=== PATIENT | female | born 1965 | race Caucasian/White ===

== ENCOUNTER 2019-08-15 11:41 | Inpatient (IN) ==
[2019-08-15] MEDS ORDERED: Aspirin 81 MG TAB.CHEW PO ONE (11:45)
[2019-08-15] MEDS ORDERED: Nitroglycerin 0.4 MG TAB.SUBL SL PRN (11:45)
[2019-08-15 12:22] LABS: Basophils % 0.5 %; Eosinophils # 0.1 K/mcL (0.0-0.6); Hemoglobin 13.4 g/dL (11.5-15.4); Immature Granulocytes % 0.3 % (0-4); Lymphocytes # 1.6 K/mcL (0.6-4.6); Lymphocytes % 26.5 %; Mean Corpuscular HGB Conc 34.4 g/dL (31.6-35.5); Mean Corpuscular Hemoglobin 30.2 pg (28.0-33.3); Mean Corpuscular Volume 87.8 fL (83.0-100.0); Mean Platelet Volume 8.9 fL (9.4-12.4); Monocytes # 0.5 K/mcL (0.0-1.3); Monocytes % 8.7 %; Neutrophils # 3.8 K/mcL (1.6-8.9); Platelet Count 174 K/mcL (140-400); Red Blood Count 4.44 M/mcL (3.82-4.97); Red Cell Distribution Width 14.2 % (11.5-14.5); White Blood Count 6.1 K/mcL (4.3-11.1)
[2019-08-15 12:26] LABS: INR 3.1; Prothrombin Time 35.1 Seconds (9.4-12.1)
[2019-08-15 12:29] LABS: Activated Partial Thrombo Time 50.6 Seconds (26.0-36.0)
[2019-08-15 13:50] LABS: BUN/Creatinine Ratio 16 (6-26); Blood Urea Nitrogen 13 mg/dL (6-20); Calcium 7.6 mg/dL (8.6-10.3); Carbon Dioxide 22 mEq/L (23-29); Chloride 112 mEq/L (98-107); Glucose 76 mg/dL (70-105); Osmolality,Calculated 291 (280-300); Potassium 3.4 mEq/L (3.5-5.1); Sodium 141 mEq/L (136-145); Troponin I < 0.03 ng/mL (< 0.04); eGFR For African Americans > 60 (> 60); eGFR For Non-African Americans > 60 (> 60)
[2019-08-15] MEDS ORDERED: Isovue-370 500 ML BOTTLE IVP ONE (14:13)
[2019-08-15] MEDS ORDERED: Naloxone 0.4 MG/ML INJ IVP PRN (16:19)
[2019-08-15] MEDS ORDERED: Ondansetron 4 MG/2 ML VIAL IVP PRN (16:19)
[2019-08-15] MEDS: Ipratropium/Albuterol Neb 3 ML IH SCH ×2 (17:50→22:17)
[2019-08-15] MEDS ORDERED: *HR* Warfarin 3 MG TABLET PO ONE (18:00)
[2019-08-15] MEDS ORDERED: Warfarin perPT PO PRN (18:00)
[2019-08-15] MEDS: Nicotine 14 MG PATCH.TD24 TD SCH (18:10)
[2019-08-15] MEDS ORDERED: Morphine Sulfate 2 MG/ML SYRINGE IVP PRN (20:09)
[2019-08-15] MEDS: Budesonide/Formoterol 160/4.5 1 PUFF INH IH SCH (22:18)
[2019-08-16 01:16] LABS: Basophils % 0.6 %; Eosinophils # 0.1 K/mcL (0.0-0.6); Eosinophils % 1.9 %; Hematocrit 35.8 % (35.3-44.9); Hemoglobin 12.3 g/dL (11.5-15.4); Immature Granulocytes % 0.3 % (0-4); Lymphocytes # 1.5 K/mcL (0.6-4.6); Lymphocytes % 20.3 %; Mean Corpuscular HGB Conc 34.4 g/dL (31.6-35.5); Mean Corpuscular Hemoglobin 30.1 pg (28.0-33.3); Mean Corpuscular Volume 87.5 fL (83.0-100.0); Monocytes # 0.7 K/mcL (0.0-1.3); Monocytes % 9.6 %; Neutrophils # 4.8 K/mcL (1.6-8.9); Platelet Count 174 K/mcL (140-400); Red Blood Count 4.09 M/mcL (3.82-4.97); Red Cell Distribution Width 14.1 % (11.5-14.5); Segmented Neutrophils % 67.3 %; White Blood Count 7.2 K/mcL (4.3-11.1)
[2019-08-16 01:23] LABS: INR 3.5; Prothrombin Time 40.3 Seconds (9.4-12.1)
[2019-08-16 01:35] LABS: BUN/Creatinine Ratio 22 (6-26); Blood Urea Nitrogen 22 mg/dL (6-20); Calcium 8.5 mg/dL (8.6-10.3); Carbon Dioxide 24 mEq/L (23-29); Chloride 110 mEq/L (98-107); Cholesterol 224 mg/dL (< 200); Glucose 114 mg/dL (70-105); HDL Cholesterol 25 mg/dL (40-59); LDL Cholesterol,Calculated 158 mg/dL (0-99); Osmolality,Calculated 292 (280-300); Potassium 4.1 mEq/L (3.5-5.1); Sodium 139 mEq/L (136-145); Triglycerides 206 mg/dL (< 150); eGFR For African Americans > 60 (> 60); eGFR For Non-African Americans 57 (> 60)
[2019-08-16] MEDS: Ipratropium/Albuterol Neb 3 ML IH SCH ×4 (03:32→21:52)
[2019-08-16 10:05] LABS: Adenovirus Not Detected (Not Detect); Bordetella Pertussis Not Detected (Not Detect); Chlamydophila pneumoniae Not Detected (Not Detect); Coronavirus 229E Not Detected (Not Detect); Coronavirus HKU1 Not Detected (Not Detect); Coronavirus NL63 Not Detected (Not Detect); Coronavirus OC43 Not Detected (Not Detect); Human Metapneumovirus Not Detected (Not Detect); Human Rhinovirus/Enterovirus Not Detected (Not Detect); Influenza A Subtype 2009 H1 Not Detected (Not Detect); Influenza B Not Detected (Not Detect); Mycoplasma pneumoniae Not Detected (Not Detect); Parainfluenza Virus 1 Not Detected (Not Detect); Parainfluenza Virus 2 Not Detected (Not Detect); Parainfluenza Virus 3 Not Detected (Not Detect); Parainfluenza Virus 4 Not Detected (Not Detect); Respiratory Syncytial Virus Not Detected (Not Detect)
[2019-08-16] MEDS ORDERED: GI Cocktail 40 ML EACH PO ONE (10:25)
[2019-08-16] MEDS: Budesonide/Formoterol 160/4.5 1 PUFF INH IH SCH ×2 (10:25→21:52)
[2019-08-16] MEDS: Aspirin 81 MG TAB.CHEW PO SCH (11:08)
[2019-08-16] MEDS: Nicotine 14 MG PATCH.TD24 TD SCH (11:08)
[2019-08-16] MEDS: Fluticasone Propionate Nasal 50 MCG/SPRAY BOTTLE NS SCH ×2 (11:08→21:11)
[2019-08-16] MEDS ORDERED: *HR* Phytonadione 10 MG/ML AMPUL SQ ONE (11:56)
[2019-08-16] MEDS: *HR* Enoxaparin 60 MG/0.6 ML SYRINGE SQ SCH (16:52)
[2019-08-16] MEDS ORDERED: *HR* Warfarin 4 MG TABLET PO ONE (18:00)
[2019-08-16] MEDS ORDERED: NON-FORMULARY MEDICATION 1 EACH EACH (Oxygen 2 L) NS SCH (21:00)
[2019-08-16] MEDS: traZODone 50 MG TABLET PO SCH (21:11)
[2019-08-17 00:57] LABS: INR 2.9; Prothrombin Time 32.9 Seconds (9.4-12.1)
[2019-08-17 01:30] LABS: BUN/Creatinine Ratio 28 (6-26); Blood Urea Nitrogen 22 mg/dL (6-20); Calcium 8.6 mg/dL (8.6-10.3); Carbon Dioxide 22 mEq/L (23-29); Chloride 110 mEq/L (98-107); Glucose 128 mg/dL (70-105); Magnesium 1.9 mg/dL (1.6-2.6); Osmolality,Calculated 293 (280-300); Phosphorous 2.7 mg/dL (2.7-4.5); Potassium 3.5 mEq/L (3.5-5.1); Sodium 139 mEq/L (136-145); eGFR For African Americans > 60 (> 60); eGFR For Non-African Americans > 60 (> 60)
[2019-08-17] MEDS ORDERED: 0.9 % Sodium Chloride 250 ML ONE (02:36)
[2019-08-17] MEDS: Ipratropium/Albuterol Neb 3 ML IH SCH ×4 (04:16→22:06)
[2019-08-17] MEDS: *HR* Enoxaparin 60 MG/0.6 ML SYRINGE SQ SCH ×2 (05:31→17:08)
[2019-08-17 06:56] LABS: INR 1.5
[2019-08-17] MEDS: Aspirin 81 MG TAB.CHEW PO SCH (07:58)
[2019-08-17] MEDS: Nicotine 14 MG PATCH.TD24 TD SCH (08:05)
[2019-08-17] MEDS: Fluticasone Propionate Nasal 50 MCG/SPRAY BOTTLE NS SCH ×2 (08:06→20:21)
[2019-08-17] MEDS: Budesonide/Formoterol 160/4.5 1 PUFF INH IH SCH ×2 (10:57→22:06)
[2019-08-17] MEDS ORDERED: NON-FORMULARY MEDICATION 1 EACH EACH (Trazodone Hcl 200 MG) PO PRN (12:31)
[2019-08-17] MEDS: 0.9 % Sodium Chloride 500 ML IVC SCH ×2 (13:41→22:54)
[2019-08-17] MEDS ORDERED: *HR* Propofol 200 MG/20 ML VIAL IVP ONE (13:52)
[2019-08-17] MEDS ORDERED: Lidocaine -MPF 2% 2 ML VIAL ONE (13:53)
[2019-08-17] MEDS: hydrOXYzine pamoate 25 MG CAPSULE PO SCH ×2 (15:36→20:22)
[2019-08-17] MEDS ORDERED: *HR* Warfarin 3 MG TABLET PO ONE (18:00)
[2019-08-17] MEDS ORDERED: Warfarin perPT PO PRN (18:00)
[2019-08-17] MEDS: traZODone 50 MG TABLET PO SCH (20:22)
[2019-08-17] MEDS ORDERED: Mirtazapine 15 MG TABLET PO SCH (21:00)
[2019-08-18] MEDS: Ipratropium/Albuterol Neb 3 ML IH SCH ×2 (03:51→10:47)
[2019-08-18] MEDS: *HR* Enoxaparin 60 MG/0.6 ML SYRINGE SQ SCH (05:06)
[2019-08-18 05:55] LABS: INR 1.6; Prothrombin Time 17.9 Seconds (9.4-12.1)
[2019-08-18] MEDS: hydrOXYzine pamoate 25 MG CAPSULE PO SCH (08:49)
[2019-08-18] MEDS: Nicotine 14 MG PATCH.TD24 TD SCH (08:49)
[2019-08-18] MEDS: Aspirin 81 MG TAB.CHEW PO SCH (08:49)
[2019-08-18] MEDS: Fluticasone Propionate Nasal 50 MCG/SPRAY BOTTLE NS SCH (08:50)
[2019-08-18] MEDS ORDERED: Levothyroxine 25 MCG TABLET PO SCH (09:00)
[2019-08-18] MEDS: 0.9 % Sodium Chloride 500 ML IVC SCH (09:54)
[2019-08-18] MEDS: Budesonide/Formoterol 160/4.5 1 PUFF INH IH SCH (10:47)
[2019-08-18 11:23] VITALS: BP 100/78
[2019-08-18] MEDS ORDERED: *HR* Warfarin 3 MG TABLET PO ONE (18:00)
== END 2019-08-18 12:09 | disposition home or self-care (01) | DRG 243 ==
LOC: EMEROOARM 11:41 → 3BNU 11:41 → SUATTDRO 15:53 → 3BNU 16:31
PROVIDERS: ADMIT Internal Medicine; ATTEND Internal Medicine
PROC: ENDOEBX (2019-08-17 13:00)